=== PATIENT | female | born 1980 | race Caucasian/White ===

== ENCOUNTER 2017-01-13 12:24 | Emergency (ER) | payer BC ==
[~2017-01-13 12:24] MED LIST: ALBUTEROL17 GM; ALBUTEROL17 GM INH; AMOXICILLIN PO; AZITHROMYCIN PO; BACTRIM DS TABL1 TAB PO; BENZONATATE PO; CLEOCIN PO; CORTISPORIN-TC10 ML OT; DOXYCYCLINE PO; EC-NAPROSYN500 MG PO; FIORICET W/CODE1 CAP PO; FLEXERIL PO; FLONASE 0.05% N16 G1; FLONASE16 GM; GUAIFENESIN 100 MG/5 ML PO; IBUPROFEN PO; IBUPROFEN600 MG PO; KETOPROFEN PO; MEDROL PO; MOTRIN400 M1 PO; MOTRIN600 MG PO; NABUMETONE PO; NAPROXEN PO; NEOMYCIN-POLYMY10 M1 AU; NO MEDICATIONS; NORFLEX100 M1 PO; OMNICEF PO; PREDNISONE PO; PRILOSEC PO; PRILOSEC20 M1 PO; ROBITUSSIN; ROBITUSSIN ALL118 ML PO; RONDEC-DM SYRU120 ML PO; SKELAXIN PO; ULTRAM PO; VICODIN 5/500 T1 TAB PO; VOLTAREN75 MG PO; ZITHROMAX PO; ZOFRAN ODT4 MG PO; ZOFRAN PO; ZYRTEC-D T1 TAB.SR . PO
== END 2017-01-13 13:13 | disposition home or self-care (01) ==
LOC: SED 12:24
DX: J45.21 Mild intermittent asthma with (acute) exacerbation (principal); F17.200 Nicotine dependence, unspecified, uncomplicated; Z79.899 Other long term (current) drug therapy; Z88.0 Allergy status to penicillin; Z88.1 Allergy status to other antibiotic agents; Z88.2 Allergy status to sulfonamides; Z91.040 Latex allergy status
CPT/HCPCS: 99283